=== PATIENT | female | born 1995 | race Caucasian/White ===

== ENCOUNTER → 2019-06-10 | Emergency (ER) | payer OTHER ==
[~2019-06-10] VITALS: Ht 157.5 cm; Wt 63.5 kg
[2019-06-10 19:47] LABS: Urine Bacteria NONE SEEN /hpf (None Seen); Urine Blood Negative /uL (Negative); Urine Specific Gravity 1.027 (1.001-1.035); Urine WBC 3 /hpf (0 - 5)
[2019-06-10 23:51] VITALS: BP 114/66
== END | disposition home or self-care (01) ==
LOC: ER 18:34
DX: J02.0 Streptococcal pharyngitis (principal); N39.0 Urinary tract infection, site not specified
CPT/HCPCS: 71045; 81001; 81025; 87804; 87880